=== PATIENT | male | born 1950 | race Caucasian/White ===

== ENCOUNTER 2017-12-03 01:34 | Observation (INO) ==
[2017-12-03] MEDS ORDERED: Naloxone 0.4 MG/ML INJ IVP PRN (04:11)
[2017-12-03] MEDS ORDERED: Nitroglycerin 0.4 MG TAB.SUBL SL PRN (04:13)
[2017-12-03 05:16] LABS: Basophils # 0.1 K/mcL (0.0-0.2); Basophils % 0.6 %; Eosinophils # 0.3 K/mcL (0.0-0.6); Eosinophils % 3.4 %; Hematocrit 37.6 % (37.5-50.1); Hemoglobin 12.8 g/dL (12.9-16.9); Immature Granulocytes % 1.2 % (0-4); Lymphocytes # 3.1 K/mcL (0.6-4.6); Lymphocytes % 39.8 %; Mean Corpuscular Hemoglobin 33.2 pg (28.0-33.3); Mean Corpuscular Volume 97.7 fL (83.0-100.0); Mean Platelet Volume 10.2 fL (9.4-12.4); Monocytes # 0.8 K/mcL (0.0-1.3); Monocytes % 10.6 %; Neutrophils # 3.4 K/mcL (1.6-8.9); Platelet Count 228 K/mcL (140-400); Red Blood Count 3.85 M/mcL (4.19-5.50); Red Cell Distribution Width 12.3 % (11.5-14.5); Segmented Neutrophils % 44.4 %
[2017-12-03] MEDS: 0.9 % Sodium Chloride 1,000 ML IVC SCH ×2 (06:14→18:46)
[2017-12-03 07:52] LABS: Alanine Aminotransferase 17 Units/L (7-52); Albumin 3.5 g/dL (3.5-5.7); Albumin/Globulin Ratio 1.3 (1.1-2.2); Alkaline Phosphatase 87 Units/L (34-104); Aspartate Amino Transferase 24 Units/L (13-39); BUN/Creatinine Ratio 14 (6-26); Bilirubin,Total 0.2 mg/dL (0.3-1.0); Blood Urea Nitrogen 10 mg/dL (8-23); Calcium 8.7 mg/dL (8.6-10.3); Carbon Dioxide 21 mEq/L (23-29); Chloride 102 mEq/L (98-107); Chol/HDL Ratio 3.5 (0-4.9); Cholesterol 130 mg/dL (< 200); Globulin 2.7 g/dL (2.4-3.5); Glucose 89 mg/dL (70-105); HDL Cholesterol 37 mg/dL (40-59); LDL Cholesterol,Calculated 52 mg/dL (0-99); Magnesium 1.6 mg/dL (1.6-2.6); Osmolality,Calculated 275 (280-300); Potassium 3.9 mEq/L (3.5-5.1); Sodium 133 mEq/L (136-145); Total Protein 6.2 g/dL (6.4-8.9); Triglycerides 204 mg/dL (< 150); eGFR For Non-African Americans > 60 (> 60)
[2017-12-03] MEDS ORDERED: Ipratropium/Albuterol Neb 3 ML IH PRN (10:24)
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
[2017-12-03] MEDS: Aspirin 81 MG TAB.CHEW PO SCH (12:46)
[2017-12-03] MEDS ORDERED: Heparin 1,000 UNITS/500 mL 500 ML ONE (13:03)
[2017-12-03] MEDS ORDERED: 0.9 % Sodium Chloride 1,000 ML ONE (13:03)
[2017-12-03] MEDS ORDERED: Nitroglycerin 1,000 MCG/10 ML VIAL IV ONE (13:04)
[2017-12-03] MEDS ORDERED: *HR* Heparin 10,000 UNIT/10 ML VIAL ONE (13:04)
[2017-12-03] MEDS ORDERED: ISOVUE-370 200 ML INFUS..BTL IV ONE (13:04)
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
[2017-12-03] MEDS ORDERED: *HR* Midazolam HCl 2 MG/2 ML VIAL ONE (13:31)
--- NOTE | 2017-12-03 13:36 | Pre-Sedation Evaluation ---
Pre-sedation evaluation - Pre-sedation checklist Date of procedure: 12/03/17 Procedure: Left Heart Catheterization Recent Vitals: Last Vital Signs Temp 97.9 F 12/03/17 11:25 Pulse 66 12/03/17 11:25 Resp 16 12/03/17 11:25 BP 120/71 12/03/17 11:25 Pulse Ox 96 12/03/17 11:25 H&P (including ROS) documented in medical record: Yes Previous reaction to sedatives/anesthetics: No Dietary Status: NPO after Midnight Airway Assessment: Patient can open mouth completely, TMJ function normal Possible difficult airway: No ASA Classification *see protocol: CLASS III-Severe systemic disease Plan of Care: Pt appropriate candidate for procedure/moderate/conscious sedation , Risks/benefits of procedure/sedation discussed w/ patient/family, If not NPO; Risk of intake outweiged by necessity to perform procedure Cardiac Registry (Cardio Only) - Functional Capacity Functional Capacity: >=4 METS without symptoms - Clincal Frailty Scale Clinical Frailty Scale: Managing Well
--- NOTE | 2017-12-03 14:28 | Invasive Diagnostic Lab Proc ---
Name: Santiago Urbano Date of Study: 12/03/2017 Date: 1950 Ht: 68.9in Medical Record#: [id number] Age: 66 Wt: 167.55lb Gender: Male BSA: 1.91 Order #: [id number] BMI: 24.82 Physicians Procedure Physician: Edvin Harrell DO Referring MD: Referring MD: Staff Name Position Time In Sites, Huyen RT (R) Scrub 01:32 PM Salvatore Vance RN Coal Trammer 01:32 PM Magalis Cook RN Monitor 01:33 PM Indications Indication Abnormal Test - Stress Procedures Performed Procedure L HRT ART/GRFT ANGIO Pre-Procedure Checklist Informed consent is complete signed and on chart. H&P is on chart. ID band is on and ID verified with patient. Patient NPO for procedure The procedure was described for the patient and questions were answered. ECG is on chart. Plan of Care Patient will tolerate the procedure without complications. Adequate level of comfort will be maintained. Hemodynamics will remain stable Patient will recover from procedure without complications. Respiratory function will be maintained. Cardiac rhythm will remain stable. Patient temperature will be maintained. Patient and/or family have verbalized understanding of the procedure. Patient Education Chief Complaint/Reason for Test: Cardiac Cath Developmental Category: Geriatric (65+ years) Developmentally Appropriate for Age: Yes Learning Barriers: None Education Needs: Procedure Education Method: Verbal Information Taught: Cardiac Cath Educational Evaluation: Able to repeat information Intravenous Access Time IV Size Location DC'd Fluid/Drip Rate Units RN 18g 1 /" Patent On Arrival 0.9NaCl ml/hr Allergies acetaminophen hydrocodone Penicillins ceftazidime PCN (penicillin) Vital Signs Time BP (mmHg) HR (bpm) O2 Sat. RR (bpm) LOC 01:23 PM / % 5 = Fully awake and oriented or at pre-proc level 01:34 PM / % 4 = Oriented but drowsy 01:32 PM 145 / 85 71 95 % 23 01:36 PM 127 / 74 67 94 % 26 01:41 PM 123 / 74 70 95 % 21 01:46 PM 125 / 72 71 96 % 24 01:51 PM 135 / 77 70 96 % 22 01:56 PM 127 / 76 75 96 % 24 02:01 PM 133 / 74 73 96 % 21 Procedural Medications Time Medication Dose Units Method Given By 01:33 PM Oxygen 2 L/min nasal cannula Salvatore Vance RN 01:33 PM Versed 2 mg Intravenous Salvatore Vance RN 01:47 PM Lidocaine 2% 10 ml Subcutaneous Edvin Harrell DO ASA Classification: CLASS III- Severe systemic disease (i.e. prior AMI, diabetes with vascular complications, morbid obesity) Bc Score Preprocedure Postprocedure Activity 2- Moves 4 extremities sustained head lift Activity 2- Moves 4 extremities sustained head lift Circulation 2- SBP +/= 20 points of pre-anesthetic level Circulation 2- SBP +/= 20 points of pre-anesthetic level Consciousness 2- Awake and alert oriented x 3 Consciousness 2- Awake and alert oriented x 3 O2 Saturation 2- Able to maintain O2 satruation of 92% on room air O2 Saturation 2- Able to maintain O2 satruation of 92% on room air Respiratory 2- Able to deep breathe and cough well Respiratory 2- Able to deep breathe and cough well Total Score 10 Total Score 10 Contrast Agent: Isovue Diagnostic Contrast: 100 ml Total Contrast: 100 ml Fluoro Dose: 3014 mGy Procedure Log Time Note Enter By 01:20 PM Pt arrived to microbiological laboratory technician 2 at 13:[address] [facility] :23 PM Physician arrived 13:23 [facility] : PM Meet and greet completed fertile : PM Sign in performed according to hospital policy. [facility] : PM Procedure start :[facility] PM Time: Patient comfortable and pain free: Yes kmavis 01:24 PM CathStat 01:31 PM Vitals capture started with the following parameters, Patient=Adult, Interval=5 min, Initial Kdjndmjn=361 mmHg, Deflation Rate=5 mmHg, Cuff placed on Right Arm 01:31 PM Case Start :31 PM Recorded ECG: HR=72 Condition=Condition 1 01:32 PM HR=71 bpm, UZYO=414/85 mmhg, SpO2=95.0 %, Resp=23 B/min, EtCO2=34 mmHg, Comment=NSR :32 PM Huyen Coppola RT (R) Position: Scrub Time in: 13:32 [facility] 01:33 PM Salvatore Vance RN Position: Coal Trammer Time in: 13:32 [facility] :33 PM Magalis Cook RN Position: Monitor Time in: :33 kmavis :33 PM Time: 13:33 Oxygen on at 2 L/min per nasal cannula by Salvatore Vance RN avis :33 PM Time: 13:33 Versed 2 mg Intravenous Given by Salvatore Vance RN avis 01:33 PM Patient charges- Angio tray pack, Navilyst 3mm J, Pulse Oximetry and ACIST tubing and transducer avis :34 PM Hair removed from procedure site in holding area using clippers. Bilateral groin prepped with Chloraprep by Salvatore Vance RN, then patient was draped. Skin intact. avis :34 PM Time: 13:23LOC: 5 = Fully awake and oriented or at pre-proc level kmavis 01:36 PM HR=67 bpm, BHZM=593/74 mmhg, SpO2=94.0 %, Resp=26 B/min 01:39 PM ASA Class CLASS III- Severe systemic disease (i.e. prior AMI, diabetes with vascular complications, morbid obesity) kmavis 01:41 PM HR=70 bpm, VBLN=765/74 mmhg, SpO2=95.0 %, Resp=21 B/min 01:42 PM Pressure channel 2 zeroed. 01:46 PM HR=71 bpm, VYGS=893/72 mmhg, SpO2=96.0 %, Resp=24 B/min, EtCO2=31 mmHg 01:47 PM Time out performed according to hospital policy avis 01:47 PM Time: 13:47 10 ml Lidocaine 2% to right groin Subcutaneous Given by Edvin Harrell DO kmavis 01:49 PM Time: 13:34 Patient comfortable and pain free: Yes avis 01:50 PM Time: 13:34LOC: 4 = Oriented but drowsy kmavis 01:50 PM Access obtained by percutaneous puncture. 6Fr 10cm Terumo [place] sheath placed in right Femoral artery. [id number] kmavis 01:50 PM 6Fr FR 4 catheter inserted over the wire DNC kmavis 01:51 PM HR=70 bpm, PMCV=096/77 mmhg, SpO2=96.0 %, Resp=22 B/min, EtCO2=32 mmHg 01:52 PM Recorded Pressure: Ao, HR=73, Condition=Condition 1 (Aorta) Ao 109/57/78 01:54 PM Left NINA to the LAD angio performed in multiple views. kmavis 01:54 PM SVG to the 1st OM and circ angio performed in multiple views. kmavis 01:55 PM RCA angiography performed in one view. kmavis 01:55 PM Recorded Pressure: LV, HR=79, Condition=Condition 1 (Left Ventricle) LV 115/4/13 01:56 PM Catheter selectively placed in left ventricle kmavis 01:56 PM Recorded Pressure: LV, Ao, HR=74, Condition=Condition 1 (Left Ventricle) LV 130/10/17, (Aorta) Ao 125/61/88 01:56 PM Bolus angiogram of left Ventricle complete, hand injected kmavis 01:56 PM Catheter removed kmavis 01:56 PM 6Fr FL 4 catheter inserted over the wire DNC kmavis 01:56 PM LCA angiography performed in multiple views. kmavis 01:56 PM HR=75 bpm, VZCX=395/76 mmhg, SpO2=96.0 %, Resp=24 B/min, EtCO2=32 mmHg, Comment=NSR 01:57 PM Recorded Pressure: Ao, HR=77, Condition=Condition 1 (Aorta) Ao 118/58/81 01:58 PM Catheter removed kmavis 01:59 PM bolus contrast to right groin kmavis 02:00 PM Procedure completed at 14:00 12/03/2017 kmavis 02:00 PM Did you address MAREK flow and Dominance? Yes kmavis 02:01 PM Sign out completed: Radiation Dose 245.39 mGy, 3013.79 cGy/cm2 Fluoro Time: 3.1 Isovue 370 - 200ml contrast 100 ml given by Edvin Harrell DO. Complications: NoneCardiac Rehab Consult needed: NoConfirmed administered medications: Yes kmavis 02:01 PM Arterial sheath pulled using manual compression and V+ Pad for 15 minutes by Sites, Huyen RT (R) kmavis 02:01 PM Isovue 370 - 200ml,1 Bottle(s) used. kmavis 02:01 PM Estimated Blood Loss: minimal kmavis 02:01 PM HR=73 bpm, KHZO=307/74 mmhg, SpO2=96.0 %, Resp=21 B/min, EtCO2=32 mmHg, Comment=NSR 02:01 PM Post ECG NSR kmavis 02:02 PM Post Blood Pressure 133/74 kmavis 02:02 PM 14:02 Post Pulses Bilateral DP & PT 2+ kmavis 02:02 PM Information taught Cardiac Cath kmavis 02:02 PM Education needs Procedure, Plan of Care, Safe & Effective Use of Medications, and Responsibilities of Patient in Care kmavis 02:02 PM Learning barriers :None kmavis 02:02 PM Education Methods Verbal kmavis 02:02 PM Education evaluation Able to repeat information kmavis 02:03 PM Site status No bleeding/hematoma - Rt Groin as reported by Sites, Huyen RT (R) at 14:02 kmavis 02:03 PM Complications: None kmavis 02:03 PM no family present kmavis 02:10 PM Coronary Dominance: right kmavis 02:10 PM Lesion found in Proximal RCA. Pre Stenosis: 100 Pre MAREK Flow: kmavis 02:10 PM Lesion found in Proximal LMCA. Pre Stenosis: 50 Pre MAREK Flow: kmavis 02:10 PM Lesion found in Mid LAD. Pre Stenosis: 100 Pre MAREK Flow: kmavis 02:11 PM Lesion found in Mid Circumflex. Pre Stenosis: 99 Pre MAREK Flow: kmavis 02:11 PM Left Main Coronary Artery with 50% stenosis kmavis 02:12 PM Right Coronary, Right Posterior Descending Arteries with Right Posterolateral and Acute Marginal branches with 100 % stenosis. If graft is supplying this area, 0 % stenosis kmavis 02:12 PM Mid/Distal Left Anterior Descending Coronary Artery and diagonal branches with 100% stenosis. If graft is supplying this area, 0 % stenosis kmavis 02:12 PM Circumflex, Obtuse Marginal, Left Posterior Descending, and Left Posterolateral Coronary Arteries with 99 % stenosis. If graft is supplying this area, 0 % stenosis kmavis 02:13 PM Report given to Cecil OLIVARES Pt taken to 2NE Room #26. 14:13 kmavis 02:19 PM Site status No bleeding/hematoma - Rt Groin as reported by Sites, Huyen RT (R) at 14:19 kmavis 02:19 PM Opsite applied kmavis 02:19 PM Patient out of room: 14:19 kmavis Complications Complication None Hemodynamics Pressures Site Systolic/A Wave Diastolic/V Wave Mean AO 109 57 78 LV 115 4 13 LV 130 10 17 AO 125 61 88 AO 118 58 81 Post Procedure Information Blood Pressure: 133/74 mmHg Rhythm: NSR Post procedural instructions were given Closure Device Time Device Success/Fail 12/03/2017 2:04:00 PM Manual Compression Successful Site Checks Time Location Status Staff Sheath In? Note 02:02 PM Rt Groin No bleeding/hematoma Sites, Huyen RT (R) 02:19 PM Rt Groin No bleeding/hematoma Sites, Huyen RT (R) Pulses Time Site Pre-Procedure Post-Procedure Note Bilateral radial 2+ 2:02:00 PM Bilateral DP & PT 2+ Updated by Magalis Cook RN on 12/03/2017 2:20:28 PM electronically signed on 12/03/2017 2:20:54 PM with status of Final
[2017-12-03] MEDS ORDERED: 0.9 % Sodium Chloride 1,000 ML IVC SCH (14:30)
[2017-12-03] MEDS: *HR* Heparin 5,000 UNIT/ML VIAL SQ SCH (18:09)
[2017-12-03] MEDS ORDERED: Ondansetron 4 MG/2 ML VIAL IVP PRN (18:15)
[2017-12-04] MEDS: *HR* Heparin 5,000 UNIT/ML VIAL SQ SCH ×2 (01:22→05:27)
[2017-12-04 05:38] VITALS: BP 101/64
[2017-12-04] MEDS: Fluticasone/Vilanterol [Breo Ellipta 200-25 Mcg Inh IH SCH ×2 (07:08→08:45)
[2017-12-04] MEDS: Aspirin 81 MG TAB.CHEW PO SCH (08:45)
[2017-12-04] MEDS ORDERED: *HR* Digoxin 0.125 MG TABLET PO SCH (09:00)
[2017-12-04] MEDS ORDERED: Multivit/Ca/Min/Fe/FA 1 TAB TABLET PO SCH (09:00)
[2017-12-04] MEDS ORDERED: Isosorbide MONOnitrate (24 HR) 30 MG TAB.ER.24H PO SCH (10:00)
--- NOTE | 2017-12-04 10:04 | Cardiology Progress Note ---
Date of Encounter: 12/04/17 Time of Encounter: 09:30 Assessment and Plan (1) Chest pain Current Visit: No Status: Acute Per cardiology: -Admitted with typical chest pain symptoms. -Currently chest pain free. -had abnormal stress test 2015, was medically managed at that point. -Mildly elevated troponins. -LHC yesterday without intervention, patent 3/3 bypasss grafts. -Right groin access site management education reviewed with patient, states understanding. -TTE pending. -Remains chest pain free today, will add imdur. -IF no significant findings per TTE, anticipate cardiology sign off. Will arrange close outpatient follow up. Qualifiers: Chest pain type: chest pain due to myocardial ischemia Ischemic chest pain type: stable angina pectoris Qualified Code(s): I20.8 - Other forms of angina pectoris (2) Elevated troponin Current Visit: Yes Status: Acute Per cardiology: -Troponins 0.07, 0.06, 0.05. -Reports exertional chest pain, denies current. -No acute ischemic ECG changes noted. -Last TTE 2015 with Mildly dilated left ventricle. LVEF 55%. There is hypokinesis of the basal inferior and basal inferolateral bass. Moderate left ventricular diastolic dysfunction. Mildly dilated left atrium. Mildly dilated right atrium. -LHC as above. NO intervention. (3) Tobacco abuse Current Visit: Yes Status: Chronic Per cardiology: -Known chronic tobacco abuse. -SMoking cessation education provided. Discussion w patient/family: The assessment and plan as outlined above was discussed with the patient who expressed understanding and agreement. All questions were answered. Thank you for involving us in the care of your patient. Please call with any questions. Discussed and reviewed with Dr.John Elizabeth. Subjective Principal diagnosis: Chest pain Interval history: Patient denies chest pain this morning. Deneis issues walking or using right leg. Objective Vital Signs, Last 4 Hours Temp Pulse Resp BP Pulse Ox 12/04/17 06:56 97.9 F 75 16 101/64 98 General: Conversant, No Apparent Distress HEENT: Atraumatic, Normocephaly, Mucus Membranes Moist Neck: No JVD, Normal carotid pulses Cardiac: Reg Rate and Rhythm, Normal S1 and S2, No Murmur Lungs: Normal Breath Sounds, No Wheeze, Rales, Rhonchi Neuro: Alert and responsive, No focal deficits noted Abdomen: Soft, Non-Tender Skin: No rashes noted on visualized skin, Other (Right groin access site without hematoma or ecchymosis. ) Musculoskeletal: No Chest Wall Tenderness Extremities: No Clubbing, No Cyanosis, No Edema, Normal Pulses Results 12/03/17 04:24 12/03/17 04:24 Lab Results Active Medications Albuterol/Ipratropium (Duoneb) 3 ml IH [id number] PRN PRN Reason: Shortness Of Breath/Wheezing Stop: 06/04/18 10:25 Aspirin (Aspirin) 81 mg PO DAILY [facility] Stop: 06/04/18 10:31 Last Admin: 12/04/17 08:45 Dose: 81 mg Atorvastatin Calcium (Lipitor) 40 mg PO HS [facility] Stop: 06/04/18 21:01 Last Admin: 12/03/17 20:12 Dose: 40 mg Carvedilol (Coreg) 6.25 mg PO BID YVETTE PRN Reason: Protocol Stop: 06/04/18 21:01 Last Admin: 12/04/17 08:45 Dose: 6.25 mg Digoxin (Lanoxin) 0.125 mg PO DAILY [facility] Stop: 06/05/18 09:01 Last Admin: 12/04/17 08:45 Dose: 0.125 mg Heparin Sodium (Porcine) (Heparin) 5,000 unit SQ Q8HCO [facility] Stop: 06/04/18 14:01 Last Admin: 12/04/17 05:27 Dose: 5,000 unit Isosorbide Mononitrate (Imdur) 30 mg PO DAILY [facility] Stop: 06/05/18 10:01 Montelukast Sodium (Singulair) 10 mg PO HS [facility] Stop: 06/04/18 21:01 Last Admin: 12/03/17 20:12 Dose: 10 mg Multivitamins/Calcium (Thera M Plus) 1 tab PO DAILY [facility] Stop: 06/05/18 09:01 Last Admin: 12/04/17 08:45 Dose: 1 tab Naloxone HCl (Narcan) 0.4 mg IVP Q2MIN PRN PRN Reason: SEE COMMENTS Stop: 06/04/18 04:12 Nitroglycerin (Nitroglycerin) 0.4 mg SL Q5MIN PRN PRN Reason: Chest Pain Stop: 06/04/18 04:14 Ondansetron HCl (Zofran) 4 mg IVP Q6HR PRN; Protocol PRN Reason: Nausea Stop: 06/04/18 18:16 Pharmacy Profile Note (Patient Taking Own Medication) 2 each IH BID YVETTE Stop: 06/04/18 21:01 Last Admin: 12/04/17 08:45 Dose: Not Given Laboratory Tests 12/03/17 12/03/17 04:24 04:24 Hgb 12.8 L Creatinine 0.73 - Imaging and Cardiology Chest Xray: report reviewed Stress Test: report reviewed Echo: pending, report reviewed Cardiac cath: report reviewed - EKG Interpretation EKG results cardiology: other (Telemetry reviewed with average HR previous 12 hours noted to be 73, SR. PVCs and PACs noted. One run of atrial tachycardia noted.) Consult Discharge Plan - Plan Referrals: Vianey Olvera, RUBBER CURER [Primary Care Provider] -
[2017-12-04 11:19] LABS: Basophils % 0.4 %; Eosinophils # 0.2 K/mcL (0.0-0.6); Eosinophils % 2.2 %; Hematocrit 37.1 % (37.5-50.1); Hemoglobin 12.3 g/dL (12.9-16.9); Immature Granulocytes % 0.8 % (0-4); Lymphocytes # 1.6 K/mcL (0.6-4.6); Lymphocytes % 22.6 %; Mean Corpuscular HGB Conc 33.2 g/dL (31.6-35.5); Mean Corpuscular Hemoglobin 32.5 pg (28.0-33.3); Mean Corpuscular Volume 97.9 fL (83.0-100.0); Monocytes # 0.8 K/mcL (0.0-1.3); Neutrophils # 4.5 K/mcL (1.6-8.9); Platelet Count 215 K/mcL (140-400); Red Blood Count 3.79 M/mcL (4.19-5.50); Red Cell Distribution Width 12.6 % (11.5-14.5)
[2017-12-04 11:29] LABS: BUN/Creatinine Ratio 14 (6-26); Blood Urea Nitrogen 11 mg/dL (8-23); Carbon Dioxide 30 mEq/L (23-29); Chloride 104 mEq/L (98-107); Glucose 91 mg/dL (70-105); Osmolality,Calculated 283 (280-300); Potassium 4.3 mEq/L (3.5-5.1); Sodium 137 mEq/L (136-145); eGFR For Non-African Americans > 60 (> 60)
--- NOTE | 2017-12-04 11:32 | Discharge Summary ---
- NOTES TO OUTPATIENT PROVIDER Notes to Outpatient Provider: Dizziness due to hypotension, remained stable in the hospital; mild Troponin leak with h/o- abnormal stress test, underwent C with patent grafts; started on Imdur; Date of Encounter: 12/04/17 Time of Encounter: 10:15 - Discharge Diagnosis (1) Dizziness Priority: Primary Status: Acute (2) Elevated troponin Priority: Primary Status: Acute (3) CAD (coronary artery disease) Priority: Secondary Status: Chronic Qualifiers: Coronary Disease-Associated Artery/Lesion type: bypass graft [place] vs. transplanted heart: [place] heart Associated angina: without angina Qualified Code(s): I25.810 - Atherosclerosis of coronary artery bypass graft(s) without angina pectoris (4) Tobacco abuse Priority: Secondary Status: Chronic (5) COPD (chronic obstructive pulmonary disease) Priority: Secondary Status: Chronic Qualifiers: COPD type: unspecified COPD Qualified Code(s): J44.9 - Chronic obstructive pulmonary disease, unspecified (6) History of atrial fibrillation Priority: Secondary Status: Chronic (7) Hypertension Priority: Secondary Status: Chronic Qualifiers: Hypertension type: essential hypertension Qualified Code(s): I10 - Essential (primary) hypertension Hospital course: Mr. Urbano is a 66 year old male with the above medical problems, who was transferred from [place] emergency room with complaints of dizziness and mild troponin leak. Patient has known history of coronary artery disease status post CABG, who had an abnormal stress test in 2016 showing old infarct and caryn-infarct ischemia involving the basal-mid inferior septum and apical inferior wall. Patient chose medical management at the time. Patient self reports low blood pressure readings at home, blood pressure has been stable in the hospital. Initial labs and EKG showed no acute abnormality. Cardiology was consulted and patient underwent left heart catheterization due to history of abnormal stress test, which revealed patent grafts and severe three-vessel coronary artery disease, medical management recommended. Imdur has been added per cardiology recommendations. Transthoracic echocardiogram shows preserved EF, mild diastolic dysfunction, moderate segmental systolic dysfunction. Patient is currently medically stable for discharge, encouraged to be compliant with his medications and to follow-up with cardiology as outpatient. Discharge discussed with: patient - Time Spent with Patient Total time spent providing and/or coordinating discharge services: Greater than 30 minutes (45 min) - Discharge Medications Prescriptions: Isosorbide MONOnitrate (24 HR) [Imdur] 30 mg PO DAILY #30 tab.er.24h Home Medications: Albuterol Sulfate [Proair Respiclick] 2 puff IH Q4HR PRN 12/04/14 [History] Aspirin 81 mg PO DAILY 12/04/14 [History] Digoxin [Lanoxin] 0.125 mg PO DAILY 12/04/14 [History] Multivitamin/Iron/Folic Acid [Centrum Complete Multivit Tab] 1 each PO DAILY 10/11 [History] Ibuprofen [Motrin] 600 mg PO Q6HR PRN #20 tab 08/18/16 [Rx] Atorvastatin [Lipitor] 40 mg PO HS 12/03/17 [History] Carvedilol [Coreg] 6.25 mg PO BID 12/03/17 [History] Furosemide [Lasix] 10 mg PO DAILY 12/03/17 [History] Latanoprost [Xalatan] 1 drop BOTH EYES HS 12/03/17 [History] Lisinopril [Zestril] 5 mg PO DAILY 12/03/17 [History] Montelukast [Singulair] 10 mg PO HS 12/03/17 [History] Fluticasone/Vilanterol [Breo Ellipta 200-25 Mcg INH] 2 puff IH BID #2 12/04/17 [ Rx] Isosorbide MONOnitrate (24 HR) [Imdur] 30 mg PO DAILY #30 tab.er.24h 12/04/17 [ Rx] Allergies/Adverse Reactions: 3 Allergy/AdvReac Type Severity Reaction Status Date / Time acetaminophen [From Lortab] Allergy Rash Verified 12/03/17 09:39 ceftazidime [From Fortaz] Allergy Difficulty Verified 12/03/17 09:39 Breathing hydrocodone [From Lortab] Allergy Rash Verified 12/03/17 09:39 Penicillins Allergy Difficulty Verified 12/03/17 09:39 Breathing Date of admission: 12/03/17 03:15 Primary care physician: Vianey Olvera CNP Consults: 12/03/17 10:25 Consult to Cardiology [CONS] Routine Comment: Consulting Provider: Cardiology Adona Reason for Consult: Dizziness, hypotension; h/o- abnormal stress test in 2016 , refused [facility]; mild Troponin leak; Call Completed: No 12/03/17 13:14 Consult to Cardiac Rehabilitation-Phase1 [CONS] Routine Comment: Reason for Consult: elevated troponin Call Completed: No Discharging clinician: Mylene Glez Anticipated date of discharge: 12/04/17 - Constitutional Vitals: Temp Pulse Resp BP Pulse Ox 97.9 F 75 16 101/64 98 12/04/17 06:56 12/04/17 06:56 12/04/17 06:56 12/04/17 06:56 12/04/17 06:56 General appearance: Present: A&O X 3, answers questions appropriately Exam: . - Cardiovascular Cardiovascular exam: Present: RRR, +S1, +S2. Absent: diastolic murmur, gallop, rubs, systolic murmur - Patient Status Disposition: Home, Self-Care Condition: Fair Functional capacity at discharge: independent ambulation Overall status at discharge: patient is progressing back to baseline - Discharge Instructions Instructions: Isosorbide Mononitrate (By mouth), Angina (DC), Heart Healthy Diet (DC), Chronic Obstructive Pulmonary Disease (DC) Follow Up With: Vianey Olvera CNP [Primary Care Provider] - 12/10/17 1:20 pm (Follow up with [facility] [employer] [employer] ) Additional Instructions: F/up with PCP in 1-2 weeks; F/up with Cardiology as scheduled - Diet and Activity Activity: resume usual activities as tolerated Diet: low fat, low cholesterol, low salt diet
== END 2017-12-04 15:21 | disposition home or self-care (01) ==
LOC: 2NENU → SUATTDRO 03:15
PROVIDERS: ADMIT Internal Medicine; ATTEND Internal Medicine